=== PATIENT | male | born 1960 | race Caucasian/White ===

== ENCOUNTER → 2019-10-13 | Outpatient (CLI) | payer OTHER ==
--- NOTE | 2019-10-13 12:36 | KCIC ---
BRAIN W/O CONTRAST History: Imbalance. Dizziness. Double vision. Weakness. Technique: Multiplanar, multi sequential MR imaging was performed of the brain without contrast. Comparison: None Findings: No acute infarct. No intracranial hemorrhage. No mass effect. No hydrocephalus. Moderate frontal parietal predominant brain parenchymal volume loss. Imaged orbits are unremarkable. Left inferior maxillary sinus mucous retention cyst or polyp. Mastoid air cells are clear. Impression: 1. No acute intracranial abnormality. 2. Moderate lateral parietal predominant brain parenchymal volume loss, advanced for age. Electronically signed by: Flip Wilson DO (10/13/2019 12:33 PM) [id number]
== END | disposition home or self-care (01) ==
LOC: KCIC MRI 10:32
PROVIDERS: ATTEND Physician Assistant
DX: R26.89 Other abnormalities of gait and mobility (principal); R42 Dizziness and giddiness; R53.1 Weakness; H53.2 Diplopia
CPT/HCPCS: 70551